=== PATIENT | female | born 1990 | race Caucasian/White ===

== ENCOUNTER 2018-02-04 19:40 | Inpatient (IN) | payer OTHER ==
[~2018-02-04 19:40] MED LIST: Bupivacaine/Epinephrine 0.25% 30 ML VIAL ONE; Lidocaine 2% MPF 10 ML AMP (For Epidural Use) ONE
[2018-02-04] MEDS ORDERED: Lidocaine 1% (PF) 30 ML VIAL SC PRN (19:55)
[2018-02-04] MEDS ORDERED: Butorphanol Tartrate 1 MG/ML VIAL SLOW IVP PRN (19:55)
[2018-02-04] MEDS ORDERED: Misoprostol 200 MCG TAB PR PRN (19:55)
[2018-02-04] MEDS ORDERED: Methylergonovine 0.2 MG/ML VIAL IM PRN (19:55)
[2018-02-04] MEDS ORDERED: Promethazine HCl 25 MG/ML VIAL IM PRN (19:55)
[2018-02-04] MEDS ORDERED: HYDROcodone/Acetaminophen 5/325 mg Tablet PO PRN ×2 (19:55)
[2018-02-04] MEDS ORDERED: Ibuprofen 800 MG TAB PO PRN (19:55)
[2018-02-04 20:28] VITALS: BMI 28.1
[2018-02-04] MEDS: Lactated Ringer's 1,000 ML IV SCH (20:42)
[2018-02-04] MEDS ORDERED: NS w/ Oxytocin 10 units 500 ML ONE (20:50)
[2018-02-04 20:53] LABS: Mean Corpuscular HGB CONC 35.5 g/dL (32.0-36.0); Mean Corpuscular Hemoglobin 31.5 pg (27.0-31.0); Mean Corpuscular Volume 88.8 fL (78.0-98.0); Mean Platelet Volume 8.5 fL (7.4-10.4); Platelet Count 145 thou/uL (130-400); RBC Distribution Width 13.2 % (11.5-14.5); Red Blood Cell (RBC) Count 3.82 mill/uL (4.20-5.40)
[2018-02-04] MEDS ORDERED: NS w/ Oxytocin 10 units 500 ML IV SCH (21:00)
--- NOTE | 2018-02-04 21:01 | PDOC.LDHP ---
Labor and Delivery H&P Chief complaint: other (elective induction of labor at 39 weeks.) HPI: Feeling well. occasional contractions Due date: 02/11/18 Grav: 3 Para: 1 OB History Details: G1: with shoulder dystocia relieved by suprapubic pressure, 2nd degree perineal laceration Current complications: none Abnormal US findings: No Current medications: pre- vitamins Allergies/Adverse Reactions: Allergies Allergy/AdvReac Type Severity Reaction Status Date / Time No Known Allergies Allergy Verified 02/04/18 20:18 Social history: none - Physical Exam Vital signs reviewed and normal: yes General: NAD, resting Heart: other Lungs: nonlabored breathing Abdomen: gravid FHT: category 1 (135 baseline. + Accelerations, no declerations.) [place] contractions every: CTX mild to palpation, Q5+ mins - Vaginal Exam cm dilated: 2 Effacement: 50% Station: -2 - OB Labs Blood type: O RH: positive Antibody Screen: negative HIV: negative RPR: negative HEPSAg: negative 1 hour GCT: positive 3 hour GTT: neg GBS: negative Urine drug screen: not done Rubella: immune - Assessment L&D Assessment: elective induction at term - Plan Plan: admit to L&D, anesthesia consult for pain management (pitocin anticipate . risk of with shoulder dysotica. stool at bedside)
[2018-02-04 21:41] LABS: Syphilis Antibody Nonreactive (Nonreactive); Syphilis Antibody Index 0.03 S/CO (<1.00 Non-Reactive)
[2018-02-04 23:46] LABS: HBSAg Index 0.18 S/CO (0-0.99); Hep B Surf Ag Non-Reactive S/CO (NonReactive)
[2018-02-05] MEDS ORDERED: Bupivacaine 0.75% 13.4 ML, fentaNYL Citrate/PF 400 MCG in Sodium Chloride 0.9% 78.6 ML EPIDURAL SCH (01:30)
[2018-02-05] MEDS ORDERED: DISCONTINUE ALL PREVIOUS NARCOTICS FS SCH (01:30)
[2018-02-05] MEDS: Lactated Ringer's 1,000 ML IV SCH (02:11)
[2018-02-05] MEDS: Ondansetron HCl/PF 4 MG/2 ML Vial IVP PRN ×2 (05:41→07:35)
[2018-02-05] MEDS: NS / Oxytocin 40 units/1000ml 1,000 ML IV PRN ×2 (06:55→08:54)
--- NOTE | 2018-02-05 07:16 | PDOC.OPDEL ---
OB Operative/Delivery Note Delivery Dr/Surgeon: light Pre-Delivery Diagnosis: elective induction Procedure/Post Delivery Dx: spontaneous vaginal delivery Weeks gestation: 39 Anesthesia: epidural - Findings A Sex: male - Additional Findings/Plan Placenta delivered: spontaneous Repaired Obstetrical Laceration: none Estimated blood loss: 200 Post delivery plan: routine recovery
[2018-02-05] MEDS ORDERED: Ondansetron HCl/PF 4 MG/2 ML Vial IVP PRN ×2 (07:36→09:52)
[2018-02-05] MEDS ORDERED: Bisacodyl 10 MG SUPP PR PRN (09:52)
[2018-02-05] MEDS ORDERED: Milk Of Magnesia 30 ML UDCUP PO PRN (09:52)
[2018-02-05] MEDS ORDERED: Benzocaine/Menthol 20-0.5% 60 ML CAN TOP PRN (09:52)
[2018-02-05] MEDS ORDERED: NS / Oxytocin 40 units/1000ml 1,000 ML IV SCH (09:52)
[2018-02-05] MEDS ORDERED: HYDROcodone/Acetaminophen 5/325 mg Tablet PO PRN ×2 (09:52)
[2018-02-05] MEDS ORDERED: Methylergonovine 0.2 MG/ML VIAL IM PRN (09:52)
[2018-02-05] MEDS ORDERED: Ferrous Sulfate 325 MG TAB PO SCH (10:15)
[2018-02-05] MEDS ORDERED: Misoprostol 200 MCG TAB VAG SCH (10:15)
[2018-02-05] MEDS ORDERED: Docusate Calcium (SURFAK) 240 MG CAP PO SCH (10:15)
[2018-02-05] MEDS ORDERED: Prenatal Vitamin 1 TAB PO SCH (10:15)
[2018-02-05] MEDS ORDERED: Promethazine HCl 25 MG/ML VIAL IM PRN ×2 (11:13)
[2018-02-05] MEDS: Ibuprofen 800 MG TAB PO SCH (15:17)
[2018-02-05] MEDS: Ferrous Sulfate 325 MG TAB PO SCH (17:13)
[2018-02-06] MEDS: Ibuprofen 800 MG TAB PO SCH ×2 (03:07→07:22)
[2018-02-06] MEDS: Docusate Calcium (SURFAK) 240 MG CAP PO SCH ×2 (03:07→09:33)
[2018-02-06] MEDS: Ferrous Sulfate 325 MG TAB PO SCH (07:22)
[2018-02-06 08:27] VITALS: BP 119/70; TEMP 98.6
[2018-02-06] MEDS ORDERED: Varicella virus, LIVE 0.5 ML VIAL SC ONE (09:00)
[2018-02-06] MEDS ORDERED: Adacel (T-DAP) 0.5 ML VIAL IM ONE (09:00)
[2018-02-06] MEDS ORDERED: Prenatal Vitamin 1 TAB PO SCH (09:00)
== END 2018-02-06 12:25 | disposition home or self-care (01) | DRG 775 ==
LOC: L&D 19:40 → 3SW 02-05 09:54
PROVIDERS: ADMIT Obstetrics & Gynecology; ATTEND Obstetrics & Gynecology
PROC: 3E033VJ Introduction of Other Hormone into Peripheral Vein, Percutaneous Approach (ICD-10-PCS; 2018-02-04)
PROC: 10E0XZZ Delivery of Products of Conception, External Approach (ICD-10-PCS; principal; 2018-02-05)
DX: O80 Encounter for full-term uncomplicated delivery (principal); Z3A.39 39 weeks gestation of pregnancy; Z37.0 Single live birth
CPT/HCPCS: 36415; 51702; 85027; 86780; 86850; 86900; 86901; 87340; 90715; J2001; J2405; J3010; J7050